=== PATIENT | male | born 1995 | race Hispanic/Latino ===

== ENCOUNTER 2016-12-01 12:46 | Emergency (ER) | payer OTHER ==
[~2016-12-01] VITALS: Ht 185.4 cm; Wt 111.1 kg
[2016-12-01] MEDS ORDERED: LIDOCAINE 1% INJ 20 ML (XYLOCAINE) VIAL INJ ONE (13:30)
--- NOTE | 2016-12-01 13:31 | ED Upper Extremity ---
General Chief Complaint: Laceration Stated Complaint: L MIDDLE FINGER LAC Nursing Triage Note: pt ambulated to ed. pt states he was at work and a large piece of machinery fell and smashed/cut his left middle finger. no other injuries noted. Nursing Sepsis Screen: No Definite Risk Source: patient Exam Limitations: no limitations History of Present Illness Time seen by provider: 13:30 Initial Comments To ER with a laceration/amputation to the distal part of the middle finger left hand from a work-related injury after he got smashed at [employer]. Fingernail is missing and there is exposed bone. Onset: just prior to arrival Severity: moderate Pain/Injury Location: left 3rd finger Allergies and Home Medications Allergies Coded Allergies: No Known Drug Allergies (Unverified , 12/01/16) Home Medications No Active Prescriptions or Reported Meds Constitutional: see HPI EENTM: see HPI Respiratory: no symptoms reported Cardiovascular: no symptoms reported Genitourinary: no symptoms reported Musculoskeletal: no symptoms reported Skin: no symptoms reported Psychiatric/Neurological: No Symptoms Reported Past Dwrcues-Wexdpz-Ptlntt Hx Patient Social History Alcohol Use: Denies Use Recreational Drug Use: No Smoking Status: Former Smoker 2nd Hand Smoke Exposure: No Recent Foreign Travel: No Contact w/Someone Who Travel: No Recent Infectious Disease Expo: No Recent Hopitalizations: No Immunizations Up To Date Tetanus Booster (TDap): Unknown Seasonal Allergies Seasonal Allergies: Yes Physical Exam Vital Signs Vital Sign - Last 12Hours 12/01/16 12:58 Temp 98.7 Pulse 69 Resp 20 B/P (MAP) 138/84 Pulse Ox 99 O2 Delivery Room Air Capillary Refill : Less Than 3 Seconds General Appearance: WD/WN, no apparent distress HEENT: PERRL/EOMI, normal ENT inspection Neck: non-tender, full range of motion Respiratory: no respiratory distress, no accessory muscle use Gastrointestinal: normal bowel sounds, non tender, soft Shoulder: normal inspection, non-tender Elbow/Forearm: normal inspection, non-tender Wrist: Yes normal inspection, Yes non-tender Hand: Left, laceration (indication of the distal part of the finger. The fingernail is absent. The distal third of the distal phalanx is exposed beyond the soft tissues.) Neurologic/Psychiatric: alert, normal mood/affect, oriented x 3 Skin: normal color, warm/dry Laceration Repair : Wound Location: Upper Extremities Wound Length (cm): 2 Wound's Depth, Shape: bone Wound Explored: clean Irrigated w/ Saline (ccs): 300 Betadine Prep?: Yes Anesthesia: 1% Lidocaine Volume Anesthetic (ccs): 4 Suture: Vicryl Suture Size: 4-0 Number of Sutures: 10 Layer Closure?: 0 Number Deep Layer Sutures: 3 Progress The exposed bone was unable to be covered by soft tissue. As such the exposed bone was rongeured down beneath the level of the tissue laceration so that it could be covered. Roughly 10 sutures were placed size 4-0 Vicryl to cover the exposed bone. Progress/Results/Core Measures Results/Orders My Orders Orders - ELGIN CAMARA APRN Ceftriaxone Injection (Rocephin Injectio (12/01/16 13:30) Lidocaine 1% Injection (Xylocaine 1% Inj (12/01/16 13:30) Lidocaine 2% Injection 20 Ml (Xylocaine (12/01/16 13:30) Hand, Left, 3 Views (12/01/16 13:29) Dipht,Pertuss(Acell),Tet Adult (Boostrix (12/01/16 13:45) Medications Given in ED Current Medications Medications Dose Ordered Sig/Gideon Route Start Time Stop Time Status Last Admin Dose Admin Diphtheria/ Tetanus/Acell Pertussis 0.5 ml ONCE ONCE IM 12/01/16 13:45 12/01/16 13:46 DC 12/01/16 13:47 0.5 ML Vital Signs/I&O Vital Sign - Last 12Hours 12/01/16 12:58 Temp 98.7 Pulse 69 Resp 20 B/P (MAP) 138/84 Pulse Ox 99 O2 Delivery Room Air Blood Pressure Mean: 102 Departure Impression Impression: Primary Impression: Traumatic amputation of fingertip Disposition: 01 HOME, SELF-CARE Condition: Stable Departure-Patient Inst. Decision time for Depature: 14:27 Referrals: GHADA VARGHESE MD, JONATHAN MD MCNEMAR, MARK E DO NO,LOCAL PHYSICIAN (PCP) Primary Care Physician CHRISS RAPHAEL MD, ROBERT F DO ZAFUTA, MICHAEL P MD Patient Instructions: Laceration Repair With Stitches (DC) Add. Discharge Instructions: Change the dressing daily with the materials provided 2. Follow-up with an orthopedic surgeon. Call today to make an appointment to be seen sometime next week 3. Antibiotics and pain medication as directed All discharge instructions reviewed with patient and/or family. Voiced understanding. Scripts Cephalexin (Keflex) 500 Mg Capsule 500 MG PO TID, #21 CAP Prov: ELGIN CAMARA APRN 12/01/16 Hydrocodone/Acetaminophen (Lucien 5-325 Tablet) 1 Each Tablet 1 EACH PO Q4H Y for PAIN-MODERATE TO SEVERE, #30 TAB Prov: ELGIN CAMARA APRN 12/01/16 ELGIN CAMARA APRN Dec 01, 2016 13:31
[2016-12-01] MEDS: TETANUS,DIPTH,PERTUSS P/F (BOOSTRIX) 0.5 ML VIAL IM ONE (13:47)
--- NOTE | 2016-12-01 14:24 | Diagnostic Imaging Report ---
Three views of the left hand. INDICATION: Injury. FINDINGS: There is significant soft tissue loss seen along the tip of the left middle finger. This appears to expose the distal aspect of the distal phalanx. There is no fracture, however, seen. No dislocation. Joint alignment is satisfactory. No radiopaque foreign body is seen. IMPRESSION: Significant soft tissue loss around the distal aspect of the distal phalanx in the left middle finger. No fracture or radiopaque foreign body seen. Dictated by: Dictated on workstation # [id number]
[2016-12-01] MEDS ORDERED: HYDR-757 PO (14:31)
[2016-12-01] MEDS ORDERED: CEPH-507 PO (14:31)
[2016-12-01] MEDS: LIDOCAINE 2% 20 ML (XYLOCAINE) VIAL INJ ONE (14:38)
[2016-12-01] MEDS: cefTRIAXone 1 GM (ROCEPHIN) VIAL IM ONE (14:38)
[2016-12-01 14:49] VITALS: BP 136/88
== END 2016-12-01 14:49 | disposition home or self-care (01) ==
LOC: ER 12:51
DX: S68.123A Partial traumatic metacarpophalangeal amputation of left middle finger, initial encounter (principal); W20.8XXA Other cause of strike by thrown, projected or falling object, initial encounter; Z23 Encounter for immunization; Y92.59 Other trade areas as the place of occurrence of the external cause; Y99.0 Civilian activity done for income or pay
CPT/HCPCS: 12001; 64450; 73130; 90715